=== PATIENT | female | born 1995 | race Asian ===

== ENCOUNTER → 2018-02-20 | Day surgery (SDC) | payer OTHER ==
[2018-02-08 09:58] VITALS: BMI 32.0
[~2018-02-20] VITALS: Ht 162.6 cm; Wt 84.1 kg
[~2018-02-20] MED LIST: ALBU18002 INH; AMT50 PO; FERR1TAB23 PO; IUD'IUD; LIDOCAINE HCL 2% 2 ML VIAL (20MG/ML) ONE; MIDAZOLAM HCL 1 MG/ML 2ML VIAL ONE; OMEP20CA9 PO; PROPOFOL IV EMULSION 10 MG/ML 20 ML VIAL IV ONE; RANI150T85 PO; SODIUM CHLORIDE 0.9% 500ML 500 ML IV ONE
--- NOTE | 2018-02-20 14:04 | Endo History and Physical ---
History & Physical Date of Service: Feb 20, 2018. Chief Complaint: Epigastric tenderness and elevated CRP Referring Physician: Dr. Callaway History of Present Illness 22 yo female who presents for EGD secondary to epigastric tenderness and elevated CRP. Past Surgical History Hx Cardiac Surgery: No Hx Internal Defibrillator: No Hx Pacemaker: No Hx Abdominal Surgery: No Hx of Implantable Prosthesis: No Hx Post-Op Nausea and Vomiting: No Hx Cancer Surgery: No Hx Thoracic Surgery: No Hx Orthopedic: Yes (RT SHOULDER SURGERY) Hx Urinary Tract Surgery: No Family History None Social History Smoking Status: Never Smoker Hx Substance Use: No Hx Alcohol Use: Yes (OCCASIONALLY ON WEEKENDS) Allergies Coded Allergies: NO KNOWN DRUG ALLERGIES (Verified Allergy, Unknown, ., 02/08/18) Uncoded Allergies: RED FOOD DYE (Allergy, Unknown, ANAPHYLAXIS, 02/08/18) Current Medications Reported Home Medications Medications Dose Route/Sig Max Daily Dose Days Date Category Zantac (Ranitidine HCl) 150 Mg Tab 150 Mg PO BID PRN 02/08/18 Reported Paragard Intrauterine Operator Assistant I Cementing (Iud's) 1 Iud Iud 02/08/18 Reported Prilosec (Omeprazole) 20 Mg Cap 20 Mg PO QAM 02/08/18 Reported Iron (Ferrous Sulfate) 325 Mg Tab 1 Tab PO DAILY WITH FOOD 02/08/18 Reported Elavil (Amitriptyline HCl) 50 Mg Tab 50 Mg PO DIRECTED PRN 02/08/18 Reported Proair Respiclick (Albuterol Sulfate) 108 Mcg/Act Aer 1-2 Puff INH Q4H PRN 02/08/18 Reported Vital Signs Weight (Kilograms): 84.09 Height (Feet): 5 Height (Inches): 4 Physical Exam General Appearance: WD/WN, no apparent distress Respiratory/Chest: Auscultation: breath sounds normal Cardiovascular: Heart Auscultation: RRR Abdomen: Bowel Sounds: normal Inspection & Palpation: soft, non-distended, no tenderness, guarding & rebound Assessment and Plan Assessment: 22 yo female who presents for EGD secondary to epigastric tenderness and elevated CRP. Plan: Proceed with EGD.
[2018-02-20 14:08] VITALS: Ht 162.6 cm; Wt 84.1 kg
--- NOTE | 2018-02-20 14:47 | Discharge Instructions ---
Endoscopy Patient Instructions Date / Procedure(s) Performed Feb 20, 2018. EGD Allergy Information Coded Allergies: NO KNOWN DRUG ALLERGIES (Verified Allergy, Unknown, ., 02/08/18) Uncoded Allergies: RED FOOD DYE (Allergy, Unknown, ANAPHYLAXIS, 02/08/18) Discharge Date / Findings Feb 20, 2018. Esophagitis s/p biopsies Hiatal hernia Erosive gastritis s/p biopsies Medication Instructions OK to resume all medications today as prescribed Reported Home Medications Medications Dose Route/Sig Max Daily Dose Days Date Category Zantac (Ranitidine HCl) 150 Mg Tab 150 Mg PO BID PRN 02/08/18 Reported Paragard Intrauterine Fulling Machine Operator (Iud's) 1 Iud Iud 02/08/18 Reported Prilosec (Omeprazole) 20 Mg Cap 20 Mg PO QAM 02/08/18 Reported Iron (Ferrous Sulfate) 325 Mg Tab 1 Tab PO DAILY WITH FOOD 02/08/18 Reported Elavil (Amitriptyline HCl) 50 Mg Tab 50 Mg PO DIRECTED PRN 02/08/18 Reported Proair Respiclick (Albuterol Sulfate) 108 Mcg/Act Aer 1-2 Puff INH Q4H PRN 02/08/18 Reported Provider Instructions Activity Restrictions - No exercising or heavy lifting for 24 hours. - Do not drink alcohol the day of the procedure. - Do not drive a car or operate machinery until the day after the procedure. - Do not make any important decisions or sign important papers in 24 hours after the procedure. Following Day: - Return to full activity which may include returning to work/school. Diet Start your diet with liquids and light foods (jello, soup, juice, toast). Then eat your usual diet if not nauseated. Treatment For Common After Affects For mild abdominal pain, bloating, or excessive gas: - Rest - Eat lightly - Lie on right side Follow-Up Information Follow-up with DR KELSEY BENNETT as scheduled Anesthesia Information What You Should Know You have had a procedure that required some medicine to reduce anxiety and discomfort. This treatment is called moderate sedation. After receiving the treatment, you may be sleepy, but you will be able to breathe on your own. The effects of the treatment may last for several hours. Follow these instructions along with Activity/Diet recommendations noted above: * Do NOT do anything where dizziness or clumsiness would be dangerous. * Rest quietly at home today, then you can be up and about tomorrow. * Have a responsible person stay with you the rest of today. * You may have had an I.V. today. If so, you may take the dressing off later today. Recommendations Call your doctor if: * Trouble breathing * Continuous vomiting for more than 24 hours * Temperature above 101 degrees * Severe abdominal pain or bloating * Pain not relieved by pain medicine ordered * There is increased drainage or redness from any incision * A large amount of rectal bleeding greater than 2-3 tablespoons. (If you had a polyp/s removed or have hemorrhoids, a small amount of blood - from the rectum is to be expected.) * You have any unanswered questions or concerns. IN THE EVENT OF A SERIOUS EMERGENCY, GO TO THE NEAREST EMERGENCY ROOM Your discharge instructions were prepared by provider Andre Mirza. Patient Instructions Signature Page Yisel Hartley Patient (or Guardian) Signature/Date: I have read and understand the instructions given to me by my caregivers. Caregiver/RN/Doctor Signature/Date: The above-named patient and/or guardian has received patient instructions on this date. + Original Patient Signature Page (only) stays with chart. Please make copy for patient.
[2018-02-20 15:15] VITALS: BP 106/77; PULSE 70; O2SAT 99
--- NOTE | 2018-02-20 15:19 | Anesthesiology Progress Note ---
Anesthesia Post Op Note Date & Time Feb 20, 2018 at 15:19 Vital Signs Pain Intensity: 0 Vital Signs Past 12 Hours Date Time Temp Pulse Resp B/P (MAP) Pulse Ox O2 Delivery O2 Flow Rate FiO2 02/20/18 15:02 78 18 112/80 (91) 100 Room Air 02/20/18 14:47 94 16 113/96 (102) 98 Room Air 02/20/18 14:10 36.8 81 18 138/92 (107) 97 Room Air Notes Mental Status: alert / awake / arousable, participated in evaluation Pt Amnestic to Procedure: Yes Nausea / Vomiting: adequately controlled Pain: adequately controlled Airway Patency, RR, SpO2: stable & adequate BP & HR: stable & adequate Hydration State: stable & adequate Anesthetic Complications: no major complications apparent
--- NOTE | 2018-02-21 11:34 | GI REPORT ---
Patient Name: Yisel Hartley Procedure Date: 02/20/2018 2:21 PM Date of : 1995 Admit Type: Outpatient Age: 22 Gender: Female Attending MD: Andre Mirza DO Procedure: Upper GI endoscopy Providers: Andre Mirza DO Referring MD: Sarah Callaway Indications: Epigastric abdominal pain Medicines: Monitored Anesthesia Care Complications: No immediate complications. Estimated Blood Loss: Estimated blood loss: none. Procedure: Pre-Anesthesia Assessment: - Prior to the procedure, a History and Physical was performed, and patient medications and allergies were reviewed. The patient's tolerance of previous anesthesia was also reviewed. The risks and benefits of the procedure and the sedation options and risks were discussed with the patient. All questions were answered, and informed consent was obtained. Prior Anticoagulants: The patient has taken no previous anticoagulant or antiplatelet agents. ASA Grade Assessment: II - A patient with mild systemic disease. After reviewing the risks and benefits, the patient was deemed in satisfactory condition to undergo the procedure. After obtaining informed consent, the endoscope was passed under direct vision. Throughout the procedure, the patient's blood pressure, pulse, and oxygen saturations were monitored continuously. The scope was introduced through the mouth, and advanced to the second part of duodenum. The upper GI endoscopy was accomplished without difficulty. The patient tolerated the procedure well. Findings: LA Grade B (one or more mucosal breaks greater than 5 mm, not extending between the tops of two mucosal folds) esophagitis with no bleeding was found. Biopsies were taken with a cold forceps for histology. A small hiatal hernia was present. Localized mild inflammation characterized by erosions was found in the gastric antrum. Biopsies were taken with a cold forceps for histology. The examined duodenum was normal. Impression: - LA Grade B reflux esophagitis. Biopsied. - Small hiatal hernia. - Gastritis. Biopsied. - Normal examined duodenum. Recommendation: - Resume previous diet. - Continue present medications. - Await pathology results. - Return to primary care physician as previously scheduled. Andre Mirza DO 02/20/2018 5:20:29 PM This report has been signed electronically. Note Initiated On: 02/20/2018 2:21 PM Number of Addenda: 0 I attest to the content of the Intraoperative Record and orders documented therein, exceptions below {[id number]}
== END | disposition home or self-care (01) ==
LOC: C.GI 13:11
PROVIDERS: ATTEND Internal Medicine
DX: R10.13 Epigastric pain (principal); K29.50 Unspecified chronic gastritis without bleeding; K44.9 Diaphragmatic hernia without obstruction or gangrene